=== PATIENT | male | born 1995 | race Caucasian/White ===

== ENCOUNTER 2019-04-09 09:22 | Emergency (ER) | payer BC, OTHER ==
--- NOTE | 2019-04-09 11:23 | RAD ---
2 VIEW CHEST: Date: 04/09/19 No prior comparison. INDICATION: Pain. FINDINGS: There is no evidence of consolidation, effusion, or discrete pneumothorax. Cardiac silhouette is norm al in size. Osseous structures are intact. IMPRESSION: No focal consolidation. POS: C
== END 2019-04-09 10:31 | disposition home or self-care (01) ==
LOC: SCSER 09:22
DX: R07.81 Pleurodynia (principal)
CPT/HCPCS: 71046